=== PATIENT | female | born 1985 | race Caucasian/White ===

== ENCOUNTER 2019-03-04 04:20 | Inpatient (IN) | payer BC ==
[2019-03-04 04:59] LABS: Hematocrit 38 % (33-41); Hemoglobin 12.4 g/dL (12.0-16.0); Mean Corpuscular HGB Conc 33 g/dL (31-36); Mean Corpuscular Hemoglobin 28 pg (27-31); Mean Corpuscular Volume 84 fL (80-97); Mean Platelet Volume 10.8 fL (7.4-10.4); Platelet Count 212 10^3/uL (150-450); Red Cell Distribution Width 14 % (10.5-15); White Blood Count 8.1 10^3/uL (3.5-10.8)
[2019-03-04] MEDS ORDERED: Buffered Lidocaine 1% SYRIN* 1 ML/SYRINGE INTRADERM ONE (04:59)
[2019-03-04] MEDS ORDERED: Lactated Ringers 1000 ML Bag* 1,000 ML IV ONE ×2 (04:59→06:25)
[2019-03-04] MEDS ORDERED: Lactated Ringers 1000 ML Bag* 1,000 ML IV SCH ×3 (05:00→13:00)
[2019-03-04] MEDS ORDERED: OBEPIDURAL* 250 ML EPIDURAL ONE (05:17)
--- NOTE | 2019-03-04 05:20 | HP ---
General Information - Reason for Visit 33yo, , IUP@41 weeks here in active labor - General Information Maternal Age: 33 Grav: 2 Para: 0 SAB: 0 IEA: 1 Estimated Due Date: 02/24/19 Determined By: LMP Gestational Age in Weeks/Days: 41 Maternal Blood Type and Rh: O Positive - Results this Serology/RPR Result: Non-Reactive Rubella Result: Non-Immune HBsAg Result: Negative HIV Result: Negative GBS Culture Result: Negative Past Medical History Pertinent Past Medical History: See Records - BMI>35, AMA, hx LEEP, rubella non-immune Past Medical History Comment: Bi-Polar Asthma Seasonal allergies Kidney stones Past Surgical History Comment: wisdom tooth extraction Pertinent Family History: See Records Family History Comment: Father: arthritis, asthma, HTN, prostate cancer Mother: Review of Systems Constitutional: Uncomfortable CV Complaint: No Respiratory: Shortness of Breath: No Gastrointestinal: No Nausea/Vomiting, Normal Bowel Movement Genitourinary: No Leaking Fluid Musculoskeletal: Back Pain, Contractions Neurological: No Headache, No Visual Changes Movement: Normal Exam temp 98.3, RR 20, BP 131/81, HR 74 Lab Values - Entire Visit: Laboratory Tests 03/04/19 03/04/19 04:45 04:45 WBC 8.1 RBC 4.50 Hgb 12.4 Hct 38 MCV 84 MCH 28 MCHC 33 RDW 14 Plt Count 212 MPV 10.8 H Blood Type O Positive - Measurements Height: 5 ft 8 in Weight: 240 lb Weight in lbs: [id number] Body Mass Index (BMI): 36.5 Pre- Weight: 215 lb Weight Gained This : 25 lbs and 0 ozs - Exam Breast: Breast Exam Deferred Extremities: No Edema Heart: Normal Rhythm/Heart Sounds HEENT: No Significant Findings Lungs: Clear Bilaterally Rectal: Rectal Exam Deferred Targeted Exam Findings Estimated Weight: 8.5lbs via leopolds Cervical Exam: 6cm, 7cm Effacement: 100% Station: -1 Presenting Part: Vertex Membrane Status: Intact EFM Findings - External Monitor Findings Baseline Heart Rate: 120 External Monitor Findings: Accelerations Present, No Pattern of Variable or Late Decelerations, Variability Moderate External Monitor Findings Comment: No evidence of metabolic acidemia Contractions: Regular, 45-90 Seconds - q2-3 minutes Assessment/Plan - Assessment 33 yo, , IUP@41 weeks here in active labor GBS negative, BMI>35, AMA, Rubella non-immune No evidence of metabolic acidemia, IBOW Regular contractions, palpate moderate Requesting epidural Well supported by at bedside - Obstetrical Risk Factors Obstetrical Risk Factors: Obesity - Plan Plan: Admit - Anticipate Vaginal Delivery Plan Comment: Admit to L&D Epidural now VE: prn Anticipate progression to - Date/Time of Admission Date of Admission: 03/04/19 Time of Admission: 05:00
[2019-03-04] MEDS ORDERED: Famotidine TAB* 20 MG PO PRN (06:25)
[2019-03-04] MEDS ORDERED: Sodium Citrate/Citric Acid* 15 ML UDC PO PRN (06:25)
[2019-03-04] MEDS ORDERED: Phenylephrine 40 MCG/ML SYRINGE IV PUSH PRN ×2 (06:25)
[2019-03-04] MEDS ORDERED: Lactated Ringers 1000 ML Bag* 500 ML IV PRN ×2 (06:25)
[2019-03-04] MEDS ORDERED: OBEPIDURAL* 250 ML EPIDURAL SCH (07:00)
--- NOTE | 2019-03-04 07:22 | PN ---
Progress Note - Progress Note Date of Service: 03/04/19 Note: SOAP: Subjective: Pt resting in bed on left lateral. Comfortable with CEI infusing. Objective: FHR 115 bpm, moderate variability, +accels, variable decels Contractions q2-3 VE: 9.5cm/100/0, bloody show Assessment: IUP@41 weeks here in active labor GBS negative No evidence of metabolic acidemia Plan: VE prn Anticipate progression to Report given to Gerber White CNM and Danielle Ferreira CNM.
--- NOTE | 2019-03-04 08:55 | PN ---
Progress Note - Progress Note Date of Service: 03/04/19 Note: S:Reports "intermittent" pressure but comfortable enough to have a snack. O: VS: B/P: 114/78, P: 2, R:20, T: 98.3 FHR: baseline 130, moderate variability, no accelerations, occasional early decelerations, no variable or late decelerations noted UCs: q 2.5-4 min, moderate VE: deferred, anterior lip at last exam A: IUP at 41 0/7 weeks Category II FHR, doubt metabolic acidemia active labor P: Will re-assess in 1 hour or sooner as indicated, Discussed second stage, urge to push Anticipate SVB
[2019-03-04] MEDS ORDERED: Oxytocin in LR* 20 UNITS/1,000 ML BAG IVPB SCH (11:06)
[2019-03-04] MEDS ORDERED: Oxytocin in LR* 20 UNITS/1,000 ML BAG IVPB ONE (11:06)
[2019-03-04] MEDS ORDERED: Acetaminophen TAB* 325 MG PO PRN (12:09)
[2019-03-04] MEDS ORDERED: Witch Hazel PAD* JAR TOPICAL PRN (12:09)
[2019-03-04] MEDS ORDERED: Dibucaine 1% 28.35 GM TUBE PR PRN (12:09)
[2019-03-04] MEDS ORDERED: Glycerin ADULT SUPP PR PRN (12:09)
--- NOTE | 2019-03-04 12:19 | PROCNOTE ---
[facility] OB: Delivery Note - Delivery A Date of : 03/04/19 Time of : 10:54 [place] Sex: Male Weight at : 9 lb 2 oz Score 1 Minute: 9 Score 5 Minutes: 9 Gestational Age in Weeks and Days at Delivery: 41 Weeks and 1 Days Delivery Method: Spontaneous Vaginal Labor: Spontaneous Did Patient attempt ?: N/A, No Previous Amniotic Fluid: Meconium Estimated Blood Loss: 400 Anesthesia/Analgesia: CEI for Labor Anesthesia Comment: Dr. Valentine Delivered By: Gracie White - Nursery Level of Nursery: Regular/Bedside - Perineum Perineal Injury: Periurethral Laceration, Vaginal Laceration, 1st Degree Perineal Injury Comment: right periurethral hemostatic and not repaired Perineal Repair: By Delivering Practioner - Additional Delivery Notes Additional Delivery Notes: at 41 weeks with CEI for pain relief per patient preference. SROM to thin meconium at 0720 and progressed to complete and complete, began pushing at 0952. of head OA to ZAIRA at 1054, shoulders followed easily with next push, posterior shoulder first. Terminal meconium noted. to mother's chest, dried and stimulated with spontaneous cry, bulb suctioned for copious secretions. Cord clamped x 2 and cut by FOB after over one minute. Spontaneous Iqbal placenta followed at 1101, fundus boggy but firmed with pitocin and massage. Vulva and perineum inspected, right periurethral laceration not repaired and first degree vaginal laceration, well-approximated but bleeding briskly repaired in the usual fashion. KYV=298 ml. Infant and mother in stable condition at time of note.
[2019-03-04] MEDS ORDERED: Simethicone TAB* 80 MG TAB.CHEW PO SCH (12:30)
[2019-03-04] MEDS: Docusate CAP* 100 MG PO SCH ×2 (15:42→21:20)
[2019-03-04] MEDS: Ibuprofen TAB* 600 MG PO PRN (21:20)
[2019-03-05] MEDS ORDERED: Ferrous Gluconate TAB* 324 MG TAB PO SCH (09:00)
[2019-03-05] MEDS ORDERED: Measles, Mumps,Rubella VACC* 0.5 ML/VIAL SUBCUT ONE (09:00)
[2019-03-05 09:03] LABS: ABS Basophils 0 10^3/ul (0-0.2); ABS Eosinophils 0 10^3/ul (0-0.6); ABS Lymphocytes 1.9 10^3/ul (1.0-4.8); ABS Monocytes 0.7 10^3/ul (0-0.8); ABS Neutrophils 7.5 10^3/ul (1.5-7.7); ABS Nucleated RBC 0 10^3/ul; Eosinophil % 0.3 %; Hematocrit 31 % (33-41); Hemoglobin 10.1 g/dL (12.0-16.0); Mean Corpuscular HGB Conc 33 g/dL (31-36); Mean Corpuscular Hemoglobin 27 pg (27-31); Mean Corpuscular Volume 84 fL (80-97); Mean Platelet Volume 10.4 fL (7.4-10.4); Nucleated Red Blood Cells % 0.1; Platelet Count 182 10^3/uL (150-450); Red Blood Count 3.72 10^6 /uL (3.70-4.87); Red Cell Distribution Width 15 % (10.5-15); White Blood Count 10.1 10^3/uL (3.5-10.8)
[2019-03-05] MEDS: Docusate CAP* 100 MG PO SCH ×3 (09:11→20:54)
[2019-03-05] MEDS: Ibuprofen TAB* 600 MG PO PRN ×2 (09:11→15:52)
[2019-03-06] MEDS: Docusate CAP* 100 MG PO SCH (09:52)
[2019-03-06] MEDS: Ibuprofen TAB* 600 MG PO PRN (09:53)
[2019-03-06 10:12] VITALS: BP 131/73
== END 2019-03-06 13:50 | disposition home or self-care (01) | DRG 560 ==
LOC: MCHOBOUT 04:20 → MCHOB 04:41
PROVIDERS: ADMIT Advanced Practice Midwife; ATTEND Advanced Practice Midwife
PROC: 10E0XZZ Delivery of Products of Conception, External Approach (ICD-10-PCS; principal; 2019-03-04)
PROC: 0HQ9XZZ Repair Perineum Skin, External Approach (ICD-10-PCS; 2019-03-04)
PROC: 0UQMXZZ Repair Vulva, External Approach (ICD-10-PCS; 2019-03-04)
PROC: 4A1HXCZ Monitoring of Products of Conception, Cardiac Rate, External Approach (ICD-10-PCS; 2019-03-04)
DX: O48.0 Post-term pregnancy (principal); Z37.0 Single live birth; Z3A.41 41 weeks gestation of pregnancy; O99.214 Obesity complicating childbirth; O43.893 Other placental disorders, third trimester; O99.344 Other mental disorders complicating childbirth; F31.9 Bipolar disorder, unspecified; O71.82 Other specified trauma to perineum and vulva; O70.0 First degree perineal laceration during delivery; O77.0 Labor and delivery complicated by meconium in amniotic fluid; Z88.0 Allergy status to penicillin; Z88.1 Allergy status to other antibiotic agents; Z91.013 Allergy to seafood
CPT/HCPCS: 36415; 85025; 85027; 86850; 86900; 86901; 90707; A9270-GY